=== PATIENT | female | born 1970 ===

== ENCOUNTER 2018-06-09 15:23 | Emergency (ER) | payer MEDICARE ==
--- NOTE | 2018-06-09 16:00 | ER Report ---
History and Physical Time Seen By MD: 16:00 Hx. of Stated Complaint: PATIENT REPORTS EXCESSIVE THIRST, BILAT LOWER LEG SWELLING, SHAKINESS, NAUSEA, AND SCLERA ARE YELLOW WELL UNDER TONGUE. DENIES HEPATITIS OR ETOH ABUSE HPI/ROS CHIEF COMPLAINT: Jaundice, swelling in legs HISTORY OF PRESENT ILLNESS: 47-year-old female patient presents to emergency room with complaint of jaundice and swelling in her legs. Patient states that this been going on for the last couple days. She states her daughter first noticed that she was jaundiced. She states that she is from [place], and was back home visiting in [place], [place]. She states she is driving back to [place]. She states she's been in contact with her psychiatrist as she is in the process of adjusting her medications. She states that she talked with her psychiatrist about her medications. And thought that might be a cause of her jaundice. Patient states that her psychiatrist recommended to come to the emergency room for further evaluation. She denies having any abdominal pain, nausea, vomiting or diarrhea. Patient states she is not taking any IV drugs, is not a heavy drinker denies hepatitis. She states that she is also been very thirsty. REVIEW OF SYSTEMS: Respiratory: No cough, no dyspnea. Cardiovascular: No chest pain, no palpitations. Gastrointestinal: No vomiting, no abdominal pain. Musculoskeletal: No back pain. Allergies: Coded Allergies: No Known Drug Allergies (Unverified , 06/09/18) Home Meds Reported Medications Levothyroxine Sodium (LEVOTHYROXINE SODIUM) 75 Mcg Tablet, 75 MCG PO QDAY, TAB 06/09/18 Gabapentin (GABAPENTIN) 300 Mg Capsule, 300 MG PO TID, CAPSULE 06/09/18 Escitalopram Oxalate (ESCITALOPRAM OXALATE) 10 Mg Tablet, 10 MG PO QDAY, TAB 06/09/18 [place] Carbonate (LITHIUM CARBONATE) 150 Mg Capsule, 150 MG PO, CAPSULE 06/09/18 Past Medical/Surgical History Patient has a past medical history of TBI, depression, anxiety. Patient has surgical history of back surgery. Reviewed Nurses Notes: Yes Constitutional Vital Sign - Last 24 Hours 06/09/18 06/09/18 06/09/18 06/09/18 15:50 15:52 15:53 16:00 Temp 99.1 Pulse 45 43 Resp 18 B/P (MAP) 137/91 (106) 137/91 120/87 (98) Pulse Ox 95 95 O2 Delivery Room Air 06/09/18 06/09/18 06/09/18 06/09/18 16:15 16:23 16:30 16:45 Pulse 46 Resp 28 B/P (MAP) 118/75 (89) 130/77 (94) 134/74 (94) 06/09/18 06/09/18 06/09/18 06/09/18 17:00 17:15 17:20 17:45 Pulse 45 Resp 13 B/P (MAP) 121/80 (94) 128/72 (90) 106/72 (83) Pulse Ox 95 06/09/18 06/09/18 06/09/18 06/09/18 17:50 18:00 18:15 18:20 Pulse 44 45 Resp 6 11 B/P (MAP) 120/112 (115) 157/97 (117) Pulse Ox 94 96 06/09/18 06/09/18 06/09/18 06/09/18 18:30 18:45 18:50 19:00 Pulse 45 Resp 14 B/P (MAP) 127/88 (101) 127/82 (97) 129/87 (101) Pulse Ox 93 06/09/18 06/09/18 06/09/18 06/09/18 19:15 19:35 19:45 20:00 Pulse 45 Resp 8 B/P (MAP) 140/93 (109) 119/84 (96) 124/78 (93) Pulse Ox 93 06/09/18 06/09/18 06/09/18 20:05 20:30 20:35 Pulse 42 47 Resp 12 13 B/P (MAP) 141/87 (105) Pulse Ox 94 97 Intake and Output 06/09/18 06/09/18 06/10/18 14:59 22:59 06:59 Intake Total 1000 ml Balance 1000 ml Physical Exam General Appearance: The patient is alert, has no immediate need for airway protection and no current signs of toxicity. Eyes: Pupils equal and round no injection. Patient is jaundiced. Respiratory: Chest is non tender, lungs are clear to auscultation. Cardiac: regular rate and rhythm Gastrointestinal: Abdomen is soft and non tender, no masses, bowel sounds normal. Musculoskeletal: Neck: Neck is supple and non tender. Extremities have full range of motion and are non tender. Skin: No rashes or lesions. DIFFERENTIAL DIAGNOSIS: After history and physical exam differential diagnosis was considered for Tylenol toxicity, lithium toxicity, hepatitis, cholecystitis , mono, viral syndrome. Medical Decision Making Data Points Result Diagram: 06/09/18 1600 06/09/18 1600 Laboratory Hematology Test 06/09/18 16:00 06/09/18 16:57 06/09/18 17:52 Red Blood Count 4.34 M/uL (4.17-5.56) Mean Corpuscular Volume 90.9 fL (80.0-96.0) Mean Corpuscular Hemoglobin 31.5 pg (26.0-33.0) Mean Corpuscular Hemoglobin Concent 34.7 g/dL (32.0-36.0) Red Cell Distribution Width 17.7 % (11.5-14.5) Mean Platelet Volume 8.1 fL (7.2-11.1) Neutrophils (%) (Auto) % (39.4-72.5) Lymphocytes (%) (Auto) % (17.6-49.6) Monocytes (%) (Auto) % (4.1-12.4) Eosinophils (%) (Auto) % (0.4-6.7) Basophils (%) (Auto) % (0.3-1.4) Nucleated RBC Relative Count (auto) /100WBC Neutrophils # (Auto) K/uL (2.0-7.4) Lymphocytes # (Auto) K/uL (1.3-3.6) Monocytes # (Auto) K/uL (0.3-1.0) Eosinophils # (Auto) K/uL (0.0-0.5) Basophils # (Auto) K/uL (0.0-0.1) Nucleated RBC Absolute Count (auto) K/uL Neutrophils % (Manual) 34 % (39.4-72.5) Lymphocytes % (Manual) 34 % (17.6-49.6) Atypical Lymphocytes % 1 % Monocytes % (Manual) 15 % (4.1-12.4) Eosinophils % (Manual) 14 % (0.4-6.7) Basophils % (Manual) 2 % (0.3-1.4) Prothrombin Time 15.4 seconds (12.0-14.4) Prothromb Time International Ratio 1.21 Activated Partial Thromboplast Time 33 seconds (23-35) Sodium Level 138 mmol/L (137-145) Potassium Level 4.0 mmol/L (3.5-5.0) Chloride Level 104 mmol/L (98-107) Carbon Dioxide Level 25 mmol/L (22-31) Blood Urea Nitrogen 4 mg/dl (7-18) Creatinine 0.80 mg/dl (0.52-1.04) Glomerular Filtration Rate Calc > 60.0 Random Glucose 108 mg/dl (75-110) Calcium Level 8.5 mg/dl (8.4-10.2) Magnesium Level 2.1 mg/dl (1.7-2.2) Total Bilirubin 11.8 mg/dl (0.2-1.3) Aspartate Amino Transf (AST/SGOT) 791 U/L (0-35) Alanine Aminotransferase (ALT/SGPT) 785 U/L (0-56) Alkaline Phosphatase 252 U/L (0-126) Total Protein 5.6 g/dl (6.3-8.2) Albumin 3.1 g/dl (3.5-5.0) Human Chorionic Gonadotropin, Qual Negative (NEGATIVE) Acetaminophen Level < 10 ug/ml Valproic Acid (Depakene) Level 17.8 ug/ml [place] Level 0.6 mmol/L (0.6-1.2) Serum Alcohol < 10 mg/dl Monoscreen Negative (NEGATIVE) Urine Color Nova Urine Clarity Clear Urine pH 6.0 pH (4.8-9.5) Urine Specific [place] 1.005 Urine Protein Negative mg/dL (NEGATIVE) Urine Glucose (UA) Negative mg/dL (NEGATIVE) Urine Ketones Negative mg/dL (NEGATIVE) Urine Blood Small (NEGATIVE) Urine Nitrite Negative (NEGATIVE) Urine Bilirubin Small (NEGATIVE) Urine Urobilinogen 4.0 mg/dL (0.2-1.9) Urine Leukocyte Esterase Negative (NEGATIVE) Urine RBC <1 /HPF (0-2/HPF) Urine WBC 3 /HPF (0-5/HPF) Urine Squamous Epithelial Cells Many /LPF (</=FEW) Urine Bacteria Negative /HPF (NONE-FEW) Urine Mucus None /HPF (NONE-FEW) Urine Opiates Screen Negative Urine Barbiturates Screen Negative Ur Tricyclic Antidepressants Screen Negative Urine Phencyclidine Screen Negative Urine Amphetamines Screen Negative Urine Benzodiazepines Screen Negative Urine Cocaine Screen Negative Urine Cannabinoids Screen Negative Chemistry Test 06/09/18 16:00 06/09/18 16:57 06/09/18 17:52 White Blood Count 7.9 k/uL (4.5-11.0) Red Blood Count 4.34 M/uL (4.17-5.56) Hemoglobin 13.7 g/dL (12.0-16.0) Hematocrit 39.5 % (34.0-47.0) Mean Corpuscular Volume 90.9 fL (80.0-96.0) Mean Corpuscular Hemoglobin 31.5 pg (26.0-33.0) Mean Corpuscular Hemoglobin Concent 34.7 g/dL (32.0-36.0) Red Cell Distribution Width 17.7 % (11.5-14.5) Platelet Count 183 K/uL (150-450) Mean Platelet Volume 8.1 fL (7.2-11.1) Neutrophils (%) (Auto) % (39.4-72.5) Lymphocytes (%) (Auto) % (17.6-49.6) Monocytes (%) (Auto) % (4.1-12.4) Eosinophils (%) (Auto) % (0.4-6.7) Basophils (%) (Auto) % (0.3-1.4) Nucleated RBC Relative Count (auto) /100WBC Neutrophils # (Auto) K/uL (2.0-7.4) Lymphocytes # (Auto) K/uL (1.3-3.6) Monocytes # (Auto) K/uL (0.3-1.0) Eosinophils # (Auto) K/uL (0.0-0.5) Basophils # (Auto) K/uL (0.0-0.1) Nucleated RBC Absolute Count (auto) K/uL Neutrophils % (Manual) 34 % (39.4-72.5) Lymphocytes % (Manual) 34 % (17.6-49.6) Atypical Lymphocytes % 1 % Monocytes % (Manual) 15 % (4.1-12.4) Eosinophils % (Manual) 14 % (0.4-6.7) Basophils % (Manual) 2 % (0.3-1.4) Prothrombin Time 15.4 seconds (12.0-14.4) Prothromb Time International Ratio 1.21 Activated Partial Thromboplast Time 33 seconds (23-35) Glomerular Filtration Rate Calc > 60.0 Calcium Level 8.5 mg/dl (8.4-10.2) Magnesium Level 2.1 mg/dl (1.7-2.2) Total Bilirubin 11.8 mg/dl (0.2-1.3) Aspartate Amino Transf (AST/SGOT) 791 U/L (0-35) [place] Aminotransferase (ALT/SGPT) 785 U/L (0-56) Alkaline Phosphatase 252 U/L (0-126) Total Protein 5.6 g/dl (6.3-8.2) Albumin 3.1 g/dl (3.5-5.0) Human Chorionic Gonadotropin, Qual Negative (NEGATIVE) Acetaminophen Level < 10 ug/ml Valproic Acid (Depakene) Level 17.8 ug/ml [place] Level 0.6 mmol/L (0.6-1.2) Serum Alcohol < 10 mg/dl Monoscreen Negative (NEGATIVE) Urine Color Nova Urine Clarity Clear Urine pH 6.0 pH (4.8-9.5) Urine Specific [place] 1.005 Urine Protein Negative mg/dL (NEGATIVE) Urine Glucose (UA) Negative mg/dL (NEGATIVE) Urine Ketones Negative mg/dL (NEGATIVE) Urine Blood Small (NEGATIVE) Urine Nitrite Negative (NEGATIVE) Urine Bilirubin Small (NEGATIVE) Urine Urobilinogen 4.0 mg/dL (0.2-1.9) Urine Leukocyte Esterase Negative (NEGATIVE) Urine RBC <1 /HPF (0-2/HPF) Urine WBC 3 /HPF (0-5/HPF) Urine Squamous Epithelial Cells Many /LPF (</=FEW) Urine Bacteria Negative /HPF (NONE-FEW) Urine Mucus None /HPF (NONE-FEW) Urine Opiates Screen Negative Urine Barbiturates Screen Negative Ur Tricyclic Antidepressants Screen Negative Urine Phencyclidine Screen Negative Urine Amphetamines Screen Negative Urine Benzodiazepines Screen Negative Urine Cocaine Screen Negative Urine Cannabinoids Screen Negative Coagulation Test 06/09/18 16:00 Prothrombin Time 15.4 seconds Prothromb Time International Ratio 1.21 Activated Partial Thromboplast Time 33 seconds Toxicology Test 06/09/18 16:00 06/09/18 16:57 Acetaminophen Level < 10 ug/ml Valproic Acid (Depakene) Level 17.8 ug/ml [place] Level 0.6 mmol/L (0.6-1.2) Serum Alcohol < 10 mg/dl Urine Opiates Screen Negative Urine Barbiturates Screen Negative Ur Tricyclic Antidepressants Screen Negative Urine Phencyclidine Screen Negative Urine Amphetamines Screen Negative Urine Benzodiazepines Screen Negative Urine Cocaine Screen Negative Urine Cannabinoids Screen Negative Urinalysis Test 06/09/18 16:57 Urine Color Nova Urine Clarity Clear Urine pH 6.0 pH (4.8-9.5) Urine Specific [place] 1.005 Urine Protein Negative mg/dL (NEGATIVE) Urine Glucose (UA) Negative mg/dL (NEGATIVE) Urine Ketones Negative mg/dL (NEGATIVE) Urine Blood Small (NEGATIVE) Urine Nitrite Negative (NEGATIVE) Urine Bilirubin Small (NEGATIVE) Urine Urobilinogen 4.0 mg/dL (0.2-1.9) Urine Leukocyte Esterase Negative (NEGATIVE) Urine RBC <1 /HPF (0-2/HPF) Urine WBC 3 /HPF (0-5/HPF) Urine Squamous Epithelial Cells Many /LPF (</=FEW) Urine Bacteria Negative /HPF (NONE-FEW) Urine Mucus None /HPF (NONE-FEW) EKG/Imaging Imaging ABDOMEN/PELVIS WITH CONTRAST HISTORY: edema, jaundice x3 days TECHNIQUE: Following administration of IV contrast contiguous axial images acquired through the abdomen/pelvis. Coronal and sagittal reformatting also performed. Dose Lowering Technique One of the following dose optimization techniques was utilized in the performance of this exam: Automated exposure control; adjustment of the mA and/ or kV according to the patient's size; or use of an iterative reconstruction technique. Specific details can be referenced in the facility's radiology CT exam operational policy. CONTRAST: 75 mL Isovue-370 COMPARISON: None. FINDINGS: Visualized lung bases: Negative. Hepatobiliary: There is periportal edema present. Gallbladder is contracted with enhancement of the wall and pericholecystic fluid. The bile ducts do not appear to be dilated Spleen: Spleen is mildly enlarged Adrenals: Negative. Pancreas: Negative. Kidneys ureters or bladder: Negative. Genitalia: Myometrium appears heterogeneous. There is a 2.8 cm heterogeneous mass projecting from the anterior right side of the uterine body which may represent a fibroid. There is a small amount of free pelvic fluid GI: Negative. Vessels/spaces/nodes: There are multiple enlarged periportal lymph nodes. A food service sales representatives node is 1.8 x 1.1 cm multiple small shotty retroperitoneal lymph nodes and small periceliac lymph nodes are also present. Bones/soft tissues: There Is a small periumbilical hernia containing fat. There are postoperative changes of lumbar spine at L5-S1. There are mild spondylotic changes L1-2. incompletely imaged are extensive degenerative changes at T10-11 Additional findings: None pertinent. IMPRESSION: The gallbladder is extremely contracted with enhancement of the wall and pericholecystic fluid. The bile ducts do not appear to be dilated. This may be secondary to acute cholecystitis. Periportal edema is also noted. Mild splenomegaly There are multiple enlarged periportal lymph nodes and small shotty retroperitoneal and periceliac lymph nodes. Although these lymph nodes may be reactive clinical follow-up needed The myometrium appears heterogeneous. There is a 2.8 cm mass projecting from the anterior right-sided uterine body which may represent a fibroid. Additional chronic changes as described Report Dictated By: Nayla Tomlinson MD at 06/09/2018 5:53 PM Report E-Signed By: Nayla Tomlinson MD at 06/09/2018 6:06 PM ED Course/Re-evaluation ED Course Patient is admitted and examined, history and physical were obtained. The differential diagnoses were considered. On examination patient is jaundiced, she has yellowing to both eyes. Lungs are clear, heart is regular, abdomen is soft and nontender. A CBC, CMP, urinalysis, Tylenol level, valproic acid level, lithium level were checked. Patient had a white count of 7000, although she did have a differential showed elevated monocytes, eosinophils. Patient had an elevated AST, ALT of 791 and 785 respectively. Patient had an alkaline phosphatase of 252. A drug screen was done, PT and PTT were done. Patient had an INR of 1.12. A CT scan of abdomen and pelvis was done. I did show some contracted gallbladder with apparent gallbladder wall thickening. The radiologist felt most consistent with a cholecystitis. I discussed the case with Dr. Cisneros, general surgeon, who felt that a cholecystitis would not cause elevated liver enzymes. He is concerned about possible blockage of the common bile duct. He recommended transfer for an ERCP. I did speak with Dr. Ibarra, general surgeon at [facility]. He felt that with a normal common bile duct he did not facilitate feel that this needed to be an ERCP. He felt the patient would likely need to have an MRCP. He is willing to accept the patient for transfer and do the MRCP there and if that was normal have her follow-up with gastroenterology. I discussed this with the patient. Patient was on the fence about being transferred. She is here with her 15-year- old daughter as well as their dogs. She requested that I speak with her psychiatrist, who asked us her primary care provider. I did attempt to call him and left message. She did get in contact with him I did speak with him briefly. We discussed labs which made him feel that the patient did need to be admitted to a higher level of care. I discussed with the patient who verbalized understanding and agreement. She states she did feel better about being transferred at this point time. Patient will be transferred to [facility] Dr. Ibarra. Decision to Disposition Date: Jun 09, 2018 Decision to Disposition Time: 19:57 Depart Departure Latest Vital Signs Vital Signs Date Time Temp Pulse Resp B/P (MAP) Pulse Ox O2 Delivery O2 Flow Rate FiO2 06/09/18 20:35 47 13 97 06/09/18 20:30 141/87 (105) 06/09/18 15:52 99.1 Room Air Impression: Primary Impression: Jaundice Additional Impression: Elevated liver enzymes Condition: Condition Unchanged Disposition: XFER TO [facility] Problem Qualifiers DAVE WILDER Jun 09, 2018 16:00
[2018-06-09] MEDS ORDERED: ESCI10TA8 PO (16:09)
[2018-06-09] MEDS ORDERED: GABA-549 PO (16:09)
[2018-06-09] MEDS ORDERED: LIT150 PO (16:09)
[2018-06-09] MEDS ORDERED: LEVO75TA73 PO (16:09)
[2018-06-09] MEDS ORDERED: NS(*) 0.9% 1000 ML BAG 1,000 ML IV ONE (16:10)
[2018-06-09 16:25] LABS: PLATELET COUNT, AUTOMATED 183 K/uL (150-450)
[2018-06-09] MEDS ORDERED: IOPAMIDOL 76% 75 ML INFUS BTL 75 ML ONE (16:54)
[2018-06-09 17:09] LABS: INR 1.21
--- NOTE | 2018-06-09 18:10 | RADIOLOGY IMAGING REPORT ---
FACILITY: [facility] [place] PATIENT NAME: Anne Kelsey : 1970 MR: [id number] V: [id number] EXAM DATE: ORDERING PHYSICIAN: DAVE WILDER TECHNOLOGIST: Location: [facility] [place] Patient: Anne Kelsey : 1970 Visit/Account:[id number] Date of Sevice: 06/09/2018 ABDOMEN/PELVIS WITH CONTRAST HISTORY: edema, jaundice x3 days TECHNIQUE: Following administration of IV contrast contiguous axial images acquired through the abdom en/pelvis. Coronal and sagittal reformatting also performed. Dose Lowering Technique One of the following dose optimization techniques was utilized in the performance of this exam: Autom ated exposure control; adjustment of the mA and/or kV according to the patient's size; or use of an i terative reconstruction technique. Specific details can be referenced in the facility's radiology C T exam operational policy. CONTRAST: 75 mL Isovue-370 COMPARISON: None. FINDINGS: Visualized lung bases: Negative. Hepatobiliary: There is periportal edema present. Gallbladder is contracted with enhancement of the wall and pericholecystic fluid. The bile ducts do not appear to be dilated Spleen: Spleen is mildly enlarged Adrenals: Negative. Pancreas: Negative. Kidneys ureters or bladder: Negative. Genitalia: Myometrium appears heterogeneous. There is a 2.8 cm heterogeneous mass projecting from t he anterior right side of the uterine body which may represent a fibroid. There is a small amount of free pelvic fluid GI: Negative. Vessels/spaces/nodes: There are multiple enlarged periportal lymph nodes. A auto claim representative node is 1.8 x 1.1 cm multiple small shotty retroperitoneal lymph nodes and small periceliac lymph nodes are also present. Bones/soft tissues: There Is a small periumbilical hernia containing fat. There are postoperative ch anges of lumbar spine at L5-S1. There are mild spondylotic changes L1-2. incompletely imaged are extensive degenerative changes at T10-11 Additional findings: None pertinent. IMPRESSION: The gallbladder is extremely contracted with enhancement of the wall and pericholecystic fluid. The bile ducts do not appear to be dilated. This may be secondary to acute cholecystitis. Periportal edema is also noted. Mild splenomegaly There are multiple enlarged periportal lymph nodes and small shotty retroperitoneal and periceliac ly mph nodes. Although these lymph nodes may be reactive clinical follow-up needed The myometrium appears heterogeneous. There is a 2.8 cm mass projecting from the anterior right-side d uterine body which may represent a fibroid. Additional chronic changes as described Report Dictated By: Nayla Tomlinson MD at 06/09/2018 5:53 PM Report E-Signed By: Nayla Tomlinson MD at 06/09/2018 6:06 PM WSN:[id number]
[2018-06-09 20:30] VITALS: BP 141/87
== END 2018-06-09 21:00 | disposition short-term general hospital (02) ==
LOC: ER 15:57
DX: R17 Unspecified jaundice (principal); R79.89 Other specified abnormal findings of blood chemistry
CPT/HCPCS: 36415; 80164; 80178; 80305; 81001; 83735; 84703; 85025; 85610; 85730; 86308; 86705; 86708; 86709; 87340; 87517; 96360; 99285; G0472; G0480; J7030; Q9967; 74177; 80320; 80329; 82040; 82247; 82310; 82374; 82435; 82565; 82947; 84075; 84132; 84155; 84295; 84450; 84460; 84520; 86803

== ENCOUNTER → 2018-06-09 | Outpatient (CLI) | payer MEDICARE ==
[~2018-06-09] MED LIST: ESCI10TA8 PO; GABA-549 PO; LEVO75TA73 PO; LIT150 PO
== END ==
LOC: AMB 20:46
PROVIDERS: ATTEND Nurse Practitioner
DX: K81.9 Cholecystitis, unspecified (principal); R17 Unspecified jaundice
CPT/HCPCS: A0425; A0428